=== PATIENT | male | born 1945 | race Two or more races ===

== ENCOUNTER 2016-12-21 05:45 | Inpatient (IN) | payer MEDICAID, MEDICARE ==
[2016-12-21] VITALS (23 sets, daily range): BP systolic 90–140; BP diastolic 56–74
[~2016-12-21] VITALS: Ht 167.6 cm; Wt 71.2 kg
[2016-12-21] MEDS ORDERED: IV NS 0.9% 1,000 ML ONE ×3 (06:14→08:48)
[2016-12-21] MEDS ORDERED: MORPHINE SULFATE INJ 4 MG/ML DISP.SYRIN ONE ×2 (06:14→06:43)
[2016-12-21] MEDS ORDERED: ONDANSETRON HCL/PF 4 MG/2 ML VIAL ONE (06:14)
[2016-12-21] MEDS ORDERED: IV SET PRIMARY 1 EA INFUS.SET MC ONE (06:14)
[2016-12-21] MEDS ORDERED: ONDANSETRON HCL/PF 4 MG/2 ML VIAL IVP ONE (06:30)
[2016-12-21] MEDS ORDERED: IV NS 0.9% 1,000 ML BAG IV ONE ×3 (06:30→09:00)
[2016-12-21] MEDS ORDERED: MORPHINE SULFATE INJ 2 MG/ML DISP.SYRIN IV ONE ×2 (06:30→07:00)
[2016-12-21 06:41] LABS: DIFF TOTAL % 100 %; HEMATOCRIT 53 % (39-51); HEMOGLOBIN 17.4 g/dL (13.5-17.5); LYMPHOCYTES # (AUTO) 1.4 /CMM (0.8-4.8); MEAN CORPUSCULAR HEMOGLOBIN 28 PG (26.0-33.0); MEAN CORPUSCULAR HGB CONC 33 g/dl (31.0-36.0); MEAN CORPUSCULAR VOLUME 85 fL (80-96); MONOCYTES # (AUTO) 0.6 /CMM (0.1-1.30); MONOCYTES % (AUTO) 3.1 % (2.0-12.0); NEUTROPHILS # (AUTO) 17.5 /CMM (1.8-8.9); NEUTROPHILS % (AUTO) 89.9 % (43.0-81.0); PLATELET COUNT (AUTO) 259 /CMM (150-450); RED BLOOD CELL COUNT(AUTO) 6.21 MIL/uL (4.5-6.0); WHITE BLOOD COUNT (AUTO) 19.4 K/uL (4.3-11.0)
[2016-12-21] MEDS ORDERED: MORPHINE SULFATE INJ 2 MG/ML DISP.SYRIN ONE (06:43)
[2016-12-21 06:51] LABS: ANION GAP 18 (5-14); CALCIUM, SERUM 10.1 mg/dL (8.5-10.1); CARBON DIOXIDE 26 mmol/L (21-32); CHLORIDE 99 mmol/L (98-107); CREATININE 1.4 mg/dL (0.6-1.3); GLUCOSE 196 mg/dL (74-106); POTASSIUM 4.1 mmol/L (3.5-5.1); SODIUM SERUM 139 mmol/L (136-145); UREA NITROGEN, BLOOD 29 mg/dL (7-18)
[2016-12-21 06:53] LABS: INR 0.96 (0.87-1.13); PROTHROMBIN TIME 10.4 SECS (9.5-12.7)
[2016-12-21 06:58] LABS: ALANINE AMINOTRANSFERASE 21 U/L (12-78); ALBUMIN 4.6 g/dL (3.4-5.0); ASPARTATE AMINOTRANSFERASE 22 U/L (15-37); BILIRUBIN,DIRECT 0.1 mg/dL (0.0-0.2); BILIRUBIN,TOTAL 0.5 mg/dL (0.2-1.0); INDIRECT BILIRUBIN 0.4 mg/dL (0.0-1.1); TOTAL PROTEIN, SERUM 9.3 g/dL (6.4-8.2); TROPONIN I 0.018 ng/mL (0.00-0.056)
[2016-12-21 07:09] LABS: KETONES,URINE TRACE (NEGATIVE); LEUKOCYTE ESTERASE ,URINE NEGATIVE (NEGATIVE); PH,URINE 5.5 (5.0-8.0)
[2016-12-21 07:11] LABS: ADD UA MICROSCOPIC YES
[2016-12-21 07:12] LABS: ADD URINE CULTURE NO; MUCUS,URINE Few /LPF (None Seen); WBC,URINE 0-2 /HPF (0-3)
[2016-12-21 07:23] LABS: LACTIC ACID 3.9 mmol/L (0.4-2.0)
[2016-12-21 07:33] LABS: *LACTIC ACID REFLEX FLAG YES
[2016-12-21] MEDS ORDERED: IV SET PRIMARY PUMP SET 1 EA INFUS.SET MC ONE (08:00)
[2016-12-21] MEDS ORDERED: VANCOMYCIN 1 GM in IV D5W 250 ML IV ONE (08:00)
[2016-12-21] MEDS ORDERED: LIDOCAINE VISCOUS 2% UD 15 ML UDC MM ONE (08:00)
[2016-12-21] MEDS ORDERED: PIPERACILLIN /TAZOBACTAM 3.375 G in IV D5W 50 ML IV ONE (08:00)
[2016-12-21] MEDS ORDERED: METO25TA6 PO (08:04)
[2016-12-21] MEDS ORDERED: VALS1TAB50 PO (08:04)
[2016-12-21] MEDS ORDERED: ASPI-991 PO (08:04)
[2016-12-21] MEDS ORDERED: ROSU20TA PO (08:04)
[2016-12-21] MEDS ORDERED: FERR-58 PO (08:04)
[2016-12-21] MEDS ORDERED: PROP50TA3 PO (08:04)
[2016-12-21] MEDS ORDERED: SUCCINYLCHOLINE CHLORIDE 20 MG/ML VIAL ONE (09:09)
[2016-12-21] MEDS ORDERED: ROCURONIUM BROMIDE 50 MG/5 ML ONE (09:09)
[2016-12-21] MEDS ORDERED: FENTANYL PF 100MCG/2ML AMPUL ONE (09:10)
[2016-12-21] MEDS ORDERED: BLOOD IV SET 1 EA INFUS.SET MC ONE (09:34)
[2016-12-21] MEDS ORDERED: SEVOFLURANE 250 ML BOTTLE IH ONE (09:47)
[2016-12-21] MEDS ORDERED: BUPIVACAINE 0.5 % PF 150 MG/30 ML VIAL ONE (09:47)
[2016-12-21] MEDS ORDERED: BACITRACIN 50000 UNITS/VIAL ONE (10:01)
[2016-12-21] MEDS ORDERED: HYDROMORPHONE INJ 2 MG/ML DISP.SYRIN ONE (11:27)
[2016-12-21] MEDS ORDERED: HYDROCODONE/APAP 5/325MG 1 EACH TABLET PO PRN (13:00)
[2016-12-21] MEDS ORDERED: MAG HYDROX/AL HYDROX/SIMETH 30 ML UDC PO PRN (13:00)
[2016-12-21] MEDS ORDERED: MAGNESIUM HYDROXIDE 30 ML UDC PO PRN (13:00)
[2016-12-21] MEDS ORDERED: ZOLPIDEM TARTRATE 5 MG TABLET PO PRN (13:00)
[2016-12-21] MEDS ORDERED: Z GUARD REMEDY 2 OZ OINT TP PRN (13:00)
[2016-12-21] MEDS ORDERED: ONDANSETRON HCL/PF 4 MG/2 ML VIAL IVP PRN ×2 (13:00)
[2016-12-21] MEDS ORDERED: ACETAMINOPHEN 325 MG TABLET PO PRN (13:00)
[2016-12-21] MEDS: PROPYLTHIOURACIL 50 MG TABLET PO SCH ×2 (13:00→16:16)
[2016-12-21] MEDS: IV LR 1000 ML 1,000 ML IV PRN ×2 (13:20→21:26)
[2016-12-21] MEDS: HYDROMORPHONE 1 MG/1 ML DISP.SYRIN IV PRN ×2 (15:33→19:31)
[2016-12-21] MEDS: METOPROLOL TARTRATE 25 MG TABLET PO SCH (16:15)
[2016-12-21] MEDS: ATORVASTATIN 40 MG TABLET PO SCH (21:00)
[2016-12-21] MEDS ORDERED: Medication Not On Formulary EA (Rosuvastatin Calcium (Crestor) 20 MG) PO SCH (22:00)
[2016-12-22] VITALS (11 sets, daily range): BP systolic 120–154; BP diastolic 65–81
[2016-12-22] MEDS: HYDROMORPHONE 1 MG/1 ML DISP.SYRIN IV PRN ×4 (02:40→16:48)
[2016-12-22 05:11] LABS: BASOPHILS % (AUTO) 0.1 % (0.0-2.0); DIFF TOTAL % 100 %; EOSINOPHILS % (AUTO) 0.4 % (0.0-6.0); HEMATOCRIT 39 % (39-51); HEMOGLOBIN 13.2 g/dL (13.5-17.5); LYMPHOCYTES # (AUTO) 1.5 /CMM (0.8-4.8); LYMPHOCYTES % (AUTO) 14.7 % (20.0-44.0); MEAN CORPUSCULAR HEMOGLOBIN 29 PG (26.0-33.0); MEAN CORPUSCULAR HGB CONC 34 g/dl (31.0-36.0); MEAN CORPUSCULAR VOLUME 85 fL (80-96); MONOCYTES # (AUTO) 0.9 /CMM (0.1-1.30); NEUTROPHILS # (AUTO) 7.5 /CMM (1.8-8.9); NEUTROPHILS % (AUTO) 75.8 % (43.0-81.0); PLATELET COUNT (AUTO) 198 /CMM (150-450); RED BLOOD CELL COUNT(AUTO) 4.59 MIL/uL (4.5-6.0); WHITE BLOOD COUNT (AUTO) 9.9 K/uL (4.3-11.0)
[2016-12-22] MEDS: IV LR 1000 ML 1,000 ML IV PRN ×2 (05:12→18:10)
[2016-12-22 05:24] LABS: ALBUMIN 2.8 g/dL (3.4-5.0); BILIRUBIN,TOTAL 0.8 mg/dL (0.2-1.0); CALCIUM, SERUM 7.9 mg/dL (8.5-10.1); CREATININE 1.3 mg/dL (0.6-1.3); PHOSPHORUS 2.8 mg/dL (2.5-4.9); POTASSIUM 3.9 mmol/L (3.5-5.1); TOTAL PROTEIN, SERUM 6.3 g/dL (6.4-8.2)
[2016-12-22 05:29] LABS: TROPONIN I 0.033 ng/mL (0.00-0.056)
[2016-12-22] MEDS ORDERED: PANTOPRAZOLE 40 MG TABLET.DR PO SCH (07:30)
[2016-12-22] MEDS: VALSARTAN 80 MG TABLET PO SCH (08:29)
[2016-12-22] MEDS: METOPROLOL TARTRATE 25 MG TABLET PO SCH ×3 (08:30→17:00)
[2016-12-22] MEDS: PANTOPRAZOLE 40 MG VIAL IV SCH ×2 (08:30→09:33)
[2016-12-22] MEDS: FERROUS SULFATE (325 MG) 325 MG/TAB TABLET PO SCH (08:30)
[2016-12-22] MEDS: ASPIRIN EC 81 MG TABLET.DR PO SCH (08:30)
[2016-12-22] MEDS: PROPYLTHIOURACIL 50 MG TABLET PO SCH ×4 (08:31→17:00)
[2016-12-22] MEDS ORDERED: SECONDARY IV SET 1 EA INFUS.SET MC ONE (08:37)
[2016-12-22] MEDS ORDERED: HYDROCHLOROTHIAZIDE 25 MG TABLET PO SCH (09:00)
[2016-12-22] MEDS: Magnesium 1GM/D5W 100ML PREMIX 100 ML IV SCH ×2 (09:31→10:30)
[2016-12-22] MEDS: ATORVASTATIN 40 MG TABLET PO SCH (21:24)
[2016-12-23] VITALS (9 sets, daily range): BP systolic 125–160; BP diastolic 57–91
[2016-12-23] MEDS: IV LR 1000 ML 1,000 ML IV PRN ×2 (03:12→11:46)
[2016-12-23 07:36] LABS: BASOPHILS % (AUTO) 0.2 % (0.0-2.0); DIFF TOTAL % 100 %; EOSINOPHILS # (AUTO) 0.1 /CMM (0.0-0.7); EOSINOPHILS % (AUTO) 0.8 % (0.0-6.0); HEMATOCRIT 38 % (39-51); HEMOGLOBIN 12.6 g/dL (13.5-17.5); LYMPHOCYTES # (AUTO) 1.2 /CMM (0.8-4.8); LYMPHOCYTES % (AUTO) 14.9 % (20.0-44.0); MEAN CORPUSCULAR HEMOGLOBIN 29 PG (26.0-33.0); MEAN CORPUSCULAR HGB CONC 34 g/dl (31.0-36.0); MEAN CORPUSCULAR VOLUME 85 fL (80-96); MONOCYTES # (AUTO) 0.6 /CMM (0.1-1.30); MONOCYTES % (AUTO) 8.2 % (2.0-12.0); NEUTROPHILS # (AUTO) 5.9 /CMM (1.8-8.9); NEUTROPHILS % (AUTO) 75.9 % (43.0-81.0); PLATELET COUNT (AUTO) 171 /CMM (150-450); WHITE BLOOD COUNT (AUTO) 7.8 K/uL (4.3-11.0)
[2016-12-23 08:17] LABS: ALBUMIN 2.5 g/dL (3.4-5.0); BILIRUBIN,TOTAL 0.8 mg/dL (0.2-1.0); CALCIUM, SERUM 8.2 mg/dL (8.5-10.1); PHOSPHORUS 1.5 mg/dL (2.5-4.9); POTASSIUM 3.8 mmol/L (3.5-5.1); TOTAL PROTEIN, SERUM 6.5 g/dL (6.4-8.2)
[2016-12-23] MEDS: PANTOPRAZOLE 40 MG VIAL IV SCH (08:41)
[2016-12-23] MEDS: FERROUS SULFATE (325 MG) 325 MG/TAB TABLET PO SCH (09:00)
[2016-12-23] MEDS: VALSARTAN 80 MG TABLET PO SCH (09:00)
[2016-12-23] MEDS: ASPIRIN EC 81 MG TABLET.DR PO SCH (09:00)
[2016-12-23] MEDS: METOPROLOL TARTRATE 25 MG TABLET PO SCH ×2 (09:00→17:00)
[2016-12-23] MEDS: PROPYLTHIOURACIL 50 MG TABLET PO SCH ×3 (09:00→17:00)
[2016-12-23] MEDS ORDERED: POTASSIUM PHOSPHATE MM 15 MMOL in IV D5W 250 ML IV SCH (11:30)
[2016-12-23] MEDS ORDERED: SECONDARY IV SET 1 EA INFUS.SET MC ONE (13:47)
[2016-12-23] MEDS: POTASSIUM PHOSPHATE MM 7.5 MMOL in IV D5W 100 ML IV SCH ×2 (13:55→17:27)
[2016-12-23] MEDS ORDERED: hydrALAZINE HCL IV 20 MG VIAL IV PRN ×2 (14:00→14:30)
[2016-12-23] MEDS: ATORVASTATIN 40 MG TABLET PO SCH (21:04)
[2016-12-24] VITALS: BP 136/70
[2016-12-24] MEDS: IV LR 1000 ML 1,000 ML IV PRN ×3 (02:23→20:19)
[2016-12-24 04:00] VITALS: BP 148/68
[2016-12-24 06:12] LABS: BASOPHILS % (AUTO) 0.1 % (0.0-2.0); DIFF TOTAL % 100 %; EOSINOPHILS # (AUTO) 0.1 /CMM (0.0-0.7); EOSINOPHILS % (AUTO) 2.1 % (0.0-6.0); HEMATOCRIT 35 % (39-51); HEMOGLOBIN 11.6 g/dL (13.5-17.5); LYMPHOCYTES # (AUTO) 1.3 /CMM (0.8-4.8); LYMPHOCYTES % (AUTO) 18.6 % (20.0-44.0); MEAN CORPUSCULAR HEMOGLOBIN 29 PG (26.0-33.0); MEAN CORPUSCULAR HGB CONC 34 g/dl (31.0-36.0); MEAN CORPUSCULAR VOLUME 85 fL (80-96); MONOCYTES # (AUTO) 0.6 /CMM (0.1-1.30); MONOCYTES % (AUTO) 8.4 % (2.0-12.0); NEUTROPHILS # (AUTO) 4.8 /CMM (1.8-8.9); NEUTROPHILS % (AUTO) 70.8 % (43.0-81.0); PLATELET COUNT (AUTO) 189 /CMM (150-450); RED BLOOD CELL COUNT(AUTO) 4.05 MIL/uL (4.5-6.0); WHITE BLOOD COUNT (AUTO) 6.8 K/uL (4.3-11.0)
[2016-12-24 06:58] LABS: CALCIUM, SERUM 8.6 mg/dL (8.5-10.1); POTASSIUM 3.6 mmol/L (3.5-5.1)
[2016-12-24 08:00] VITALS: BP_SYST 134; BP_SYST 145; BP_DIAS 74; BP_DIAS 76
[2016-12-24] MEDS: ASPIRIN EC 81 MG TABLET.DR PO SCH (09:00)
[2016-12-24] MEDS: METOPROLOL TARTRATE 25 MG TABLET PO SCH ×2 (09:00→16:01)
[2016-12-24] MEDS: FERROUS SULFATE (325 MG) 325 MG/TAB TABLET PO SCH (09:00)
[2016-12-24] MEDS: PANTOPRAZOLE 40 MG VIAL IV SCH (09:00)
[2016-12-24] MEDS: PROPYLTHIOURACIL 50 MG TABLET PO SCH ×3 (09:00→16:02)
[2016-12-24] MEDS: VALSARTAN 80 MG TABLET PO SCH (09:00)
[2016-12-24] MEDS: METOCLOPRAMIDE HCL 10 MG/2 ML VIAL IV SCH ×2 (12:11→20:09)
[2016-12-24 16:00] VITALS: BP_SYST 129; BP_SYST 133; BP_DIAS 68; BP_DIAS 72
[2016-12-24 20:00] VITALS: BP 132/77
[2016-12-24] MEDS: ATORVASTATIN 40 MG TABLET PO SCH (21:12)
[2016-12-25 04:00] VITALS: BP 147/72
[2016-12-25] MEDS: METOCLOPRAMIDE HCL 10 MG/2 ML VIAL IV SCH ×3 (04:27→21:06)
[2016-12-25] MEDS: IV LR 1000 ML 1,000 ML IV PRN ×2 (04:36→17:39)
[2016-12-25 06:47] LABS: BASOPHILS % (AUTO) 0.4 % (0.0-2.0); DIFF TOTAL % 100 %; EOSINOPHILS # (AUTO) 0.2 /CMM (0.0-0.7); EOSINOPHILS % (AUTO) 2.8 % (0.0-6.0); HEMATOCRIT 34 % (39-51); HEMOGLOBIN 11.4 g/dL (13.5-17.5); LYMPHOCYTES # (AUTO) 1.2 /CMM (0.8-4.8); LYMPHOCYTES % (AUTO) 19.6 % (20.0-44.0); MEAN CORPUSCULAR HEMOGLOBIN 29 PG (26.0-33.0); MEAN CORPUSCULAR HGB CONC 34 g/dl (31.0-36.0); MEAN CORPUSCULAR VOLUME 85 fL (80-96); MONOCYTES # (AUTO) 0.5 /CMM (0.1-1.30); MONOCYTES % (AUTO) 8.3 % (2.0-12.0); NEUTROPHILS # (AUTO) 4.1 /CMM (1.8-8.9); NEUTROPHILS % (AUTO) 68.9 % (43.0-81.0); PLATELET COUNT (AUTO) 203 /CMM (150-450); RED BLOOD CELL COUNT(AUTO) 3.97 MIL/uL (4.5-6.0); WHITE BLOOD COUNT (AUTO) 5.9 K/uL (4.3-11.0)
[2016-12-25 07:21] LABS: CALCIUM, SERUM 8.5 mg/dL (8.5-10.1); CREATININE 0.9 mg/dL (0.6-1.3); PHOSPHORUS 2.6 mg/dL (2.5-4.9); POTASSIUM 3.5 mmol/L (3.5-5.1)
[2016-12-25 08:00] VITALS: BP 148/78
[2016-12-25] MEDS: FERROUS SULFATE (325 MG) 325 MG/TAB TABLET PO SCH (08:25)
[2016-12-25] MEDS: VALSARTAN 80 MG TABLET PO SCH (08:25)
[2016-12-25] MEDS: METOPROLOL TARTRATE 25 MG TABLET PO SCH ×2 (08:25→16:15)
[2016-12-25] MEDS: ASPIRIN EC 81 MG TABLET.DR PO SCH (08:25)
[2016-12-25] MEDS: PROPYLTHIOURACIL 50 MG TABLET PO SCH ×3 (08:25→16:16)
[2016-12-25] MEDS: PANTOPRAZOLE 40 MG VIAL IV SCH (08:26)
[2016-12-25 16:00] VITALS: BP 166/82
[2016-12-25 20:00] VITALS: BP 166/76
[2016-12-25] MEDS: ATORVASTATIN 40 MG TABLET PO SCH (21:06)
[2016-12-26 04:00] VITALS: BP 114/80
[2016-12-26] MEDS: IV LR 1000 ML 1,000 ML IV PRN (05:16)
[2016-12-26] MEDS: METOCLOPRAMIDE HCL 10 MG/2 ML VIAL IV SCH ×3 (05:16→22:13)
[2016-12-26 08:00] VITALS: BP 166/81
[2016-12-26] MEDS: FERROUS SULFATE (325 MG) 325 MG/TAB TABLET PO SCH (08:55)
[2016-12-26] MEDS: PANTOPRAZOLE 40 MG VIAL IV SCH (08:55)
[2016-12-26] MEDS: PROPYLTHIOURACIL 50 MG TABLET PO SCH ×3 (08:55→16:40)
[2016-12-26] MEDS: ASPIRIN EC 81 MG TABLET.DR PO SCH (08:55)
[2016-12-26] MEDS: METOPROLOL TARTRATE 25 MG TABLET PO SCH ×2 (08:56→16:41)
[2016-12-26] MEDS: VALSARTAN 80 MG TABLET PO SCH (08:57)
[2016-12-26 12:00] VITALS: BP_SYST 133; BP_DIAS 72; BP_DIAS 77
[2016-12-26 16:00] VITALS: BP 168/87
[2016-12-26 20:00] VITALS: BP 146/79
[2016-12-26] MEDS ORDERED: LEVO500T90 PO ×2 (20:28→20:30)
[2016-12-26] MEDS ORDERED: LEVO500T15 PO (20:29)
[2016-12-26] MEDS ORDERED: CLIN30GE2 TP (20:33)
[2016-12-26] MEDS ORDERED: LEVOFLOXACIN 750 MG /D5W 150ML 750 MG in PREMIX 1 EA IV SCH (21:00)
[2016-12-26] MEDS ORDERED: IV SET PRIMARY PUMP SET 1 EA INFUS.SET MC ONE (21:56)
[2016-12-26] MEDS: ATORVASTATIN 40 MG TABLET PO SCH (22:13)
[2016-12-27 04:00] VITALS: BP 130/84
[2016-12-27] MEDS: METOCLOPRAMIDE HCL 10 MG/2 ML VIAL IV SCH ×2 (05:04→12:49)
[2016-12-27 08:00] VITALS: BP 145/84
[2016-12-27] MEDS ORDERED: CLINDAMYCIN PHOSPHATE-T 60 ML BOTTLE TP SCH (09:00)
[2016-12-27] MEDS: PROPYLTHIOURACIL 50 MG TABLET PO SCH ×3 (09:59→15:58)
[2016-12-27] MEDS: PANTOPRAZOLE 40 MG VIAL IV SCH (09:59)
[2016-12-27] MEDS: FERROUS SULFATE (325 MG) 325 MG/TAB TABLET PO SCH (10:00)
[2016-12-27] MEDS: VALSARTAN 80 MG TABLET PO SCH (10:00)
[2016-12-27] MEDS: METOPROLOL TARTRATE 25 MG TABLET PO SCH ×2 (10:00→15:58)
[2016-12-27] MEDS: ASPIRIN EC 81 MG TABLET.DR PO SCH (10:00)
[2016-12-27 15:58] VITALS: BP 162/92
[2016-12-27] MEDS ORDERED: LEVOFLOXACIN (500MG) 500 MG TABLET PO SCH (20:00)
== END 2016-12-27 16:00 | disposition home or self-care (01) | DRG 221 ==
LOC: ER 05:47 → TELE 08:31 → ICU 12:06 → TELE-TD 12-22 05:55 → TELE1 12-22 12:35 → MEDSG1 12-23 12:13 → TELE-TD 12-23 15:37 → MEDSG1 12-24 08:58
PROVIDERS: ADMIT Family Medicine; ATTEND Family Medicine
PROC: 0DB80ZZ Excision of Small Intestine, Open Approach (ICD-10-PCS; principal; 2016-12-21 08:00)
DX: K55.9 Vascular disorder of intestine, unspecified (principal); N17.0 Acute kidney failure with tubular necrosis; R18.8 Other ascites; E88.09 Other disorders of plasma-protein metabolism, not elsewhere classified; E44.1 Mild protein-calorie malnutrition; E83.42 Hypomagnesemia; E83.39 Other disorders of phosphorus metabolism; N28.1 Cyst of kidney, acquired; E05.90 Thyrotoxicosis, unspecified without thyrotoxic crisis or storm; I25.10 Atherosclerotic heart disease of native coronary artery without angina pectoris; I71.4 Abdominal aortic aneurysm, without rupture; D63.8 Anemia in other chronic diseases classified elsewhere; Z95.1 Presence of aortocoronary bypass graft; N40.0 Benign prostatic hyperplasia without lower urinary tract symptoms; D72.829 Elevated white blood cell count, unspecified; I10 Essential (primary) hypertension
CPT/HCPCS: 36415; 71010-TC; 80048-TC; 80053-TC; 80061-TC; 80076-TC; 81000-TC; 83605-TC; 83690-TC; 83735-TC; 84100-TC; 84484-TC; 85025-TC; 85730-TC; 86850-TC; 86921-TC; 87040-TC; 87081-TC; 88305-TC; 88307-TC; 93307-TC; 94799-TC; 97001-TC; 97116-TC; 97530-TC; A4216; A4606; A6209; A6253; A6402; C9113; J0330; J0360; J1170; J1956; J2270; J2405; J2543; J2765; J3010; J3370; J3475; J3490; J7030; J7060; J7120; Z7610

== ENCOUNTER 2023-02-14 09:49 | Outpatient (CLI) | payer MEDICARE, OTHER ==
[~2023-02-14 09:49] MED LIST: ASPI-1420 PO; CLIN30GE2 TP; FERR325T23 PO; METO25TA6 PO; PROP50TA3 PO; ROSU20TA2 PO; VALS1TAB6 PO
== END 2023-02-14 23:59 | disposition home or self-care (01) ==
LOC: RAD 09:49
PROVIDERS: ATTEND Surgery
DX: R06.00 Dyspnea, unspecified (principal); R60.9 Edema, unspecified; I70.0 Atherosclerosis of aorta
CPT/HCPCS: 71046

== ENCOUNTER 2023-06-09 22:52 | Inpatient (IN) | payer MEDICARE, OTHER ==
[~2023-06-09] VITALS: Ht 175.3 cm; Wt 79.4 kg
[2023-06-09] MEDS ORDERED: ONDANSETRON HCL/PF 4 MG/2 ML VIAL IVP ONE (23:00)
[2023-06-09] MEDS ORDERED: FAMOTIDINE/PF INJ 20 MG/2 ML VIAL IV ONE ×2 (23:00→23:05)
[2023-06-09] MEDS ORDERED: IV NS 0.9% 1,000 ML BAG IV ONE (23:00)
[2023-06-09] MEDS ORDERED: ONDANSETRON HCL/PF 4 MG/2 ML VIAL ONE (23:05)
--- NOTE | 2023-06-09 23:05 | NUR ---
[id number] FROM HOME FOR GENERALIZED ABD PAIN AND NAUSEA. PATIENT IS AOX4, ABLE TO MAKE NEEDS KNOWN. NOT IN CP DISTRESS. PLACED COMFORTABLY IN BED. VITALS CHECKED.
--- NOTE | 2023-06-09 23:07 | NUR ---
SEEN BY DR GRAVES AT BEDSIDE
[2023-06-09] MEDS ORDERED: IV NS 0.9% 250 ML IV ONE ×2 (23:13→23:28)
[2023-06-09] MEDS ORDERED: CT SWABBABLE VALVE TRANS SET 1 EA INFUS.SET MC ONE ×2 (23:13→23:28)
[2023-06-09] MEDS ORDERED: IOHEXOL-300 100 ML VIAL IV ONE ×2 (23:13→23:28)
--- NOTE | 2023-06-09 23:15 | NUR ---
BLOOD DRAWN AND SENT TO LAB
[2023-06-09 23:28] LABS: BASOPHILS % (AUTO) 0.1 % (0.0-2.0); HEMATOCRIT 50 % (39-51); HEMOGLOBIN 16.8 g/dL (13.5-17.5); LYMPHOCYTES # (AUTO) 1.3 K/uL (0.8-4.8); LYMPHOCYTES % (AUTO) 7.6 % (20.0-44.0); MEAN CORPUSCULAR HGB CONC 33 g/dl (31.0-36.0); MEAN CORPUSCULAR VOLUME 85 fL (80-96); MONOCYTES # (AUTO) 0.7 K/uL (0.1-1.30); NEUTROPHILS # (AUTO) 15.2 K/uL (1.8-8.9); NEUTROPHILS % (AUTO) 88.3 % (43.0-81.0); PLATELET COUNT (AUTO) 270 K/uL (150-450); WHITE BLOOD COUNT (AUTO) 17.2 K/uL (4.3-11.0)
[2023-06-09 23:47] LABS: CALCIUM, SERUM 10.4 mg/dL (8.5-10.1); CARBON DIOXIDE 30 mmol/L (21-32); CHLORIDE 100 mmol/L (98-107); CREATININE 1.3 mg/dL (0.6-1.3); GLUCOSE 158 mg/dL (74-106); POTASSIUM 3.7 mmol/L (3.5-5.1); SODIUM SERUM 143 mmol/L (136-145); UREA NITROGEN, BLOOD 19 mg/dL (7-18)
[2023-06-10 00:02] LABS: ALANINE AMINOTRANSFERASE 36 U/L (12-78); ALBUMIN 4.4 g/dL (3.4-5.0); ALKALINE PHOSPHATASE 57 U/L (46-116); ASPARTATE AMINOTRANSFERASE 37 U/L (15-37); BILIRUBIN,DIRECT 0.3 mg/dL (0.0-0.2); LIPASE 47 U/L (73-393); TOTAL PROTEIN, SERUM 9.3 g/dL (6.4-8.2)
[2023-06-10] MEDS ORDERED: CEFEPIME 1 GM VIAL ONE (00:16)
[2023-06-10] MEDS ORDERED: VANCOMYCIN 1 GM /D5W 250 ML PB IV ONE (00:23)
[2023-06-10] MEDS ORDERED: CEFEPIME 1 GM in IV D5W 50 ML IV ONE (00:30)
[2023-06-10] MEDS ORDERED: VANCOMYCIN 1 GM in IV D5W 250 ML IV ONE (00:30)
--- NOTE | 2023-06-10 00:30 | NUR ---
RM [id number]
--- NOTE | 2023-06-10 01:00 | NUR ---
Urine collected, sent to lab
--- NOTE | 2023-06-10 01:07 | NUR ---
REPORT GIVEN TO JACKIE CONN
[2023-06-10 01:29] LABS: BILIRUBIN,URINE 1+ (NEGATIVE); COLOR,URINE DARK YELLOW (YELLOW); LEUKOCYTE ESTERASE ,URINE NEGATIVE (NEGATIVE); NITRITE, URINE NEGATIVE (NEGATIVE); PH,URINE 6.5 (5.0-8.0); PROTEIN,URINE 3+ mg/dl (NEGATIVE); UGLUCOSE NEGATIVE (NEGATIVE)
--- NOTE | 2023-06-10 01:31 | NUR ---
DR SALOMON CONTACTED FOR SMALL BOWEL OBSTUCTION. PEER TO PEER DONE
[2023-06-10 01:41] LABS: RBC,URINE TOO NUMEROUS TO COUN /HPF (0-2)
[2023-06-10 01:42] LABS: BACTERIA,URINE Rare /HPF (None Seen)
[2023-06-10] MEDS ORDERED: ACETAMINOPHEN 325 MG TABLET PO PRN (02:30)
[2023-06-10] MEDS ORDERED: MORPHINE SULFATE INJ 2 MG/ML DISP.SYRIN IV PRN (02:30)
[2023-06-10 02:36] VITALS: BP 155/86; TEMP 98.4; O2SAT 96
--- NOTE | 2023-06-10 02:36 | NUR ---
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
[2023-06-10] MEDS: IV NS 0.9% 1,000 ML IV SCH ×2 (03:14→16:06)
[2023-06-10 04:00] VITALS: BP 180/80; TEMP 98.4; O2SAT 96
[2023-06-10] MEDS: hydrALAZINE HCL IV 20 MG VIAL IV PRN (04:27)
--- NOTE | 2023-06-10 05:27 | NUR ---
PROOF INSPECTOR NOTES BP SUBSIDED TO 164/89 NO DISTRESS NOTED AND NO VOMITING
[2023-06-10] MEDS: ONDANSETRON HCL/PF 4 MG/2 ML VIAL IVP PRN (06:10)
--- NOTE | 2023-06-10 06:11 | NUR ---
RN NOTES PATIENT VOMITING AT THIS 30ML GREENISH COLOR ZOFRAN 4MG IV PUSH GIVEN CONTINUE TO MONITOR
--- NOTE | 2023-06-10 06:42 | NUR ---
SUPERVISOR COOLER SERVICE CLOSING NOTES PATIENT IN BED , ALERT ORIENTED X4, PATIENT ON RA O2 SAT 91% AND APPLY 2L O2 VIA N/C, SATURATION WENT UP TO 96% NO DISTRESS OR DISCOMFORT AT THIS TIME AND DENIES PAIN, NGTUBE RIGHT NARES INTACT AND PATENT, PATIENT VOMITING 30ML GREENISH COLOR ZOFRAN 4MG IV PUSH GIVEN. SKIN INTACT, IV ACCESS LAC 20G INTACT AND PATENT RUNNING OF NS AT 75 CC/HR, KEEP AND DRY AND CLEAN ALL NEED ATTENDED SIDE TRAIL UP X2, BED ALARM ON, BED LOCKED IN LOW POSITION ,VSS , ALL MEDICATIONS GIVEN PATIENT REMAINED NPO DUE TO SMALL BOWEL PER ER, OBSTRUCTION, ON TELE SR HR 96, ENDORSE TO RN DAY SHIFT
--- NOTE | 2023-06-10 07:39 | NUR ---
THEATER PROJECTIONIST NOTE PATIENT IN BED , ALERT ORIENTED X4, PATIENT ON 2L O2 VIA N/C, NO SOB NOTED AT THIS TIME, NO , NGTUBE RIGHT NARES INTACT AND PATEN NO VOMITING NOTED AT THIS TIME, SKIN INTACT, IV ACCESS LAC 20G INTACT AND PATENT RUNNING OF NS AT 75 CC/HR, KEEP AND DRY AND CLEAN ALL NEED ATTENDED SIDE TRAIL UP X2, BED ALARM ON, BED LOCKED IN LOW POSITION ,WILL CONT TO MONITOR CLOSELY
[2023-06-10 08:00] VITALS: BP 169/100; TEMP 98.4; O2SAT 96
[2023-06-10] MEDS ORDERED: CEFEPIME 2 GM in IV D5W 100 ML IV SCH (08:00)
--- NOTE | 2023-06-10 11:30 | NUR ---
NUCLEAR OFFICER NOTE SEEN BY DR AIME KIRBY TO GIVE Tylenol FOR Headache BY MOUTH OK TO START LOW INTERMITTED SUCTIONING, X RAY SMall bowel through for tomorrow
[2023-06-10 12:00] VITALS: BP 157/67; TEMP 98.4; O2SAT 96
[2023-06-10] MEDS ORDERED: INSULIN REGULAR, HUMAN 100 UNIT/ML 3 ML VIAL SQ PRN (14:00)
[2023-06-10] MEDS ORDERED: DEXTROSE 50%-WATER 50 ML DISP.SYRIN IV PRN (14:00)
--- NOTE | 2023-06-10 14:04 | NUR ---
TLE RN NOTE LT HAND NEW HL INSERTED AND TYLENOL PO GIVEN ORDERED ,DAUGHTER AT BEDSIDE, JOSE RAFAEL RN APPLICATIONS PROCESSOR AT BEDSIDE AWARE BP 157/68 AND SAY WILL ORDER PAIN MEDICATION
[2023-06-10 16:00] VITALS: BP 150/78; TEMP 98.8; O2SAT 93
--- NOTE | 2023-06-10 16:12 | NUR ---
mental telepathist note 2d echo doing now ,cont on low intermitted suction
--- NOTE | 2023-06-10 16:57 | NUR ---
telegraph operator note per dr quispe order ok to d\c accu check and sliding scale , will f\u
[2023-06-10] MEDS ORDERED: BLOOD SUGAR DIAGNOSTIC 1 EACH STRIP IN SCH (18:00)
--- NOTE | 2023-06-10 18:49 | NUR ---
PSYCHOLOGY PROFESSOR NOTE RESTING COMFORTABLY ,ALL NEEDS ATTENDANT, RT NARE N G TUBE TO LOWER INTERMITTED SUCTION WITH THERESE COLOR DRAINAGE NOTED , ON IVF ORDERED BY LT HAND , FAMILY AT BEDSIDE , ALL NEEDS ATTENDED , NO SOB NOTED ON 2L NC , WILL CONT TO MONITOR CLOSELY
--- NOTE | 2023-06-10 19:40 | NUR ---
STATE ARCHIVIST OPENNING NOTE RECEIVED PATIENT IN BED , SLEEPING AND EASILY AROUSABLE. A/O X4, PATIENT ON 2L O2 VIA N/C, NO SOB NOTED AT THIS TIME. PT HAS NGTUBE RIGHT NARES INTACT AND PATEN NO VOMITING NOTED AT THIS TIME. SKIN INTACT, IV ACCESS LEFT HAND 24G INTACT AND PATENT RUNNING OF NS AT 75 CC/HR. FAMILY AT BEDSIDE. SIDE TRAIL UP X2, BED ALARM ON, BED LOCKED IN LOW POSITION ,WILL CONT TO MONITOR .
[2023-06-10 20:00] VITALS: BP 141/96; TEMP 98.4; O2SAT 94
--- NOTE | 2023-06-10 20:00 | NUR ---
RN NOTE PT REFUSED V/S.
[2023-06-11] VITALS: BP 153/90; TEMP 98.1; O2SAT 96
[2023-06-11] MEDS: ENOXAPARIN SODIUM 40 MG/0.4 ML DISP.SYRIN SQ SCH ×2 (03:08→22:00)
[2023-06-11 04:00] VITALS: BP 153/77; TEMP 98.7; O2SAT 90
[2023-06-11] MEDS: IV NS 0.9% 1,000 ML IV SCH (05:45)
--- NOTE | 2023-06-11 07:10 | NUR ---
ASSISTANT TECHNICIAN OPENNING NOTE RECEIVED PATIENT IN BED , SLEEPING AND EASILY AROUSABLE. A/O X4, PATIENT ON 2L O2 VIA N/C, NO SOB NOTED AT THIS TIME. PT HAS NGTUBE RIGHT NARES INTACT AND PATEN NO VOMITING NOTED AT THIS TIME;CONNECTED TO THE INTERMITTENT LOW SUCTIONING , GREEN COLOR DRAINAGE NOTED IN THE DRAINAGE CONTAINER . SKIN INTACT, IV ACCESS LEFT HAND 24G INTACT AND PATENT RUNNING OF NS AT 75 CC/HR. FAMILY AT BEDSIDE. SIDE TRAIL UP X2, BED ALARM ON, BED LOCKED IN LOW POSITION ,WILL CONT TO MONITOR .
--- NOTE | 2023-06-11 07:19 | NUR ---
BLADDER BLOWER CLOSING NOTE PATIENT IN BED , SLEEPING AND EASILY AROUSABLE. A/O X4, PATIENT ON 2L O2 VIA N/C, NO SOB NOTED AT THIS TIME. PT HAS NGTUBE RIGHT NARES INTACT AND PATENT WITH LOW INTERMITTENT SUCTIONING. NO VOMITING NOTED AT THIS TIME. SKIN INTACT, IV ACCESS LEFT HAND 24G INTACT AND PATENT RUNNING OF NS AT 75 CC/HR. ALL DUE MEDS ARE GIVEN. ALL NEEDS ARE ATTENDED. KEPT PT CLEAN AND DRY. SIDE TRAIL UP X2, BED ALARM ON, BED LOCKED IN LOW POSITION ,WILL ENDORSE CARE TO AM SHIFT RN . Addendum: 06/11/23 at 0725 by TACOS CHUO RN PT HAS EXTERNAL TELE MONITOR. PT IS SIRUS RHYTHM 94.
[2023-06-11 07:50] LABS: ALBUMIN 3.2 g/dL (3.4-5.0); BILIRUBIN,TOTAL 1.1 mg/dL (0.2-1.0); CALCIUM, SERUM 8.6 mg/dL (8.5-10.1); CREATININE 0.9 mg/dL (0.6-1.3); MAGNESIUM 2.4 mg/dL (1.8-2.4); PHOSPHORUS 3.2 mg/dL (2.5-4.9); POTASSIUM 3.5 mmol/L (3.5-5.1)
[2023-06-11 08:00] VITALS: BP 141/66; TEMP 98.9; O2SAT 90
[2023-06-11 08:12] LABS: COMPLEMENT C3, SERUM 146 mg/dL (82-167); COMPLEMENT C4, SERUM 37 mg/dL (12-38)
[2023-06-11 08:43] LABS: BASOPHILS % (AUTO) 0.2 % (0.0-2.0); EOSINOPHILS % (AUTO) 0.2 % (0.0-6.0); HEMATOCRIT 42 % (39-51); LYMPHOCYTES # (AUTO) 1.1 K/uL (0.8-4.8); LYMPHOCYTES % (AUTO) 16.7 % (20.0-44.0); MEAN CORPUSCULAR HGB CONC 33 g/dl (31.0-36.0); MEAN CORPUSCULAR VOLUME 85 fL (80-96); MONOCYTES # (AUTO) 0.6 K/uL (0.1-1.30); MONOCYTES % (AUTO) 8.5 % (2.0-12.0); NEUTROPHILS # (AUTO) 4.8 K/uL (1.8-8.9); NEUTROPHILS % (AUTO) 74.4 % (43.0-81.0); PLATELET COUNT (AUTO) 198 K/uL (150-450); RED BLOOD CELL COUNT(AUTO) 4.98 MIL/uL (4.5-6.0); WHITE BLOOD COUNT (AUTO) 6.5 K/uL (4.3-11.0)
[2023-06-11] MEDS: NITROGLYCERIN 30 GM TUBE TP SCH ×3 (09:25→20:52)
[2023-06-11] MEDS: CEFEPIME 2 GM in IV D5W 100 ML IV SCH ×2 (09:29→20:39)
[2023-06-11 10:12] LABS: *ANA ANTI-CENTROMERE B AB <0.2 AI (0.0-0.9); *ANA ANTI-DNA(DS) AB, QN 1 IU/mL (0-9); *ANA ANTI-JO-1 <0.2 AI (0.0-0.9); *ANA ANTICHROMATIN ANTIBODY <0.2 AI (0.0-0.9); *ANA RNP ANTIBODIES <0.2 AI (0.0-0.9); *ANA SJOGREN'S ANTI-SS-A <0.2 AI (0.0-0.9); *ANA SJOGREN'S ANTI-SS-B <0.2 AI (0.0-0.9); *ANAANTI-SCLERODERMA-70 AB <0.2 AI (0.0-0.9); *ANASMITH AB <0.2 AI (0.0-0.9)
[2023-06-11 12:00] VITALS: BP 109/60; TEMP 98.5; O2SAT 90
[2023-06-11 16:00] VITALS: BP 112/62; TEMP 98.3; O2SAT 90
[2023-06-11] MEDS: IV NS 0.9% 1,000 ML IV PRN (16:50)
[2023-06-11] MEDS ORDERED: ESOM40CA PO (17:53)
--- NOTE | 2023-06-11 19:05 | NUR ---
SHOP REPAIRER OPENING NOTE RECEIVED PATIENT IN BED WITH FAMILY AT BEDSIDE, ASLEEP, BUT AROUSABLE. O2 VIA NC AT 2L, NO SOB/DISTRESS NOTED AT THIS TIME. ON RUBBER STAMP MAKER SHOWING SR, HR 86. PT HAS NGT ON HIS RIGHT NARE, INTACT AND PATENT ON LOW INTERMITTENT SUCTION. IV ACCESS ON LEFT HAND 24G, INFUSING NS AT 75 ML/HR. SAFETY MEASURES IN PLACE: BED LOCKED AND IN LOWEST POSITION, SIDE TRAIL UP X2, BED ALARM ON.
[2023-06-11 20:00] VITALS: BP 126/65; TEMP 97.9; O2SAT 95
--- NOTE | 2023-06-11 20:54 | NUR ---
RN NOTE PATIENT AND FAMILY REFUSED NITRO-BID TO BE ADMINISTERED AT THIS TIME DESPITE EXPLAINING MEDICATION RISKS AND BENEFITS. BP 126/65.
--- NOTE | 2023-06-11 22:03 | NUR ---
RN NOTE HELD LOVENOX FOR POSSIBLE EGD IN THE AM.
[2023-06-12] VITALS (8 sets, daily range): BP systolic 121–165; BP diastolic 58–93; TEMP 97.8–98.7; O2SAT 93–96
[2023-06-12] MEDS: IV NS 0.9% 1,000 ML IV PRN (06:32)
[2023-06-12 06:58] LABS: CALCIUM, SERUM 8.6 mg/dL (8.5-10.1); CREATININE 0.9 mg/dL (0.6-1.3); POTASSIUM 3.3 mmol/L (3.5-5.1)
--- NOTE | 2023-06-12 07:20 | NUR ---
JEWELRY ENGRAVER CLOSING NOTES PATIENT IN BED AWAKE, AAO X4, BULGARIAN SPEAKING. O2 VIA NC AT 2L, NO SOB/DISTRESS NOTED AT THIS TIME. ON BUMPER OPERATOR SHOWING SR. PT HAS NGT ON HIS RIGHT NARE, INTACT AND PATENT ON LOW INTERMITTENT SUCTION DRAINING BROWN FLUID. IV ACCESS ON LEFT HAND 24G, INFUSING NS AT 75 ML/HR. ALL DUE MEDS WERE GIVEN AND NEEDS ATTENDED. SAFETY MEASURES IN PLACE: BED LOCKED AND IN LOWEST POSITION, SIDE TRAIL UP X2, BED ALARM ON. ENDORSED TO MORNING NURSE FOR BHARTI
[2023-06-12] MEDS: POTASSIUM CL. PREMIX PERIPHER. 50 ML IV SCH ×5 (08:56→13:10)
[2023-06-12] MEDS: CEFEPIME 2 GM in IV D5W 100 ML IV SCH ×2 (09:14→21:28)
[2023-06-12] MEDS: NITROGLYCERIN 30 GM TUBE TP SCH ×2 (09:15→21:33)
[2023-06-12] MEDS ORDERED: IV 1/2NS 1000 ML 1,000 ML IV PRN (11:00)
[2023-06-12] MEDS ORDERED: POTASSIUM CL. PREMIX PERIPHER. 50 ML IV SCH (13:30)
--- NOTE | 2023-06-12 13:50 | NUR ---
followup the small bowel ff thru per xray they are waiting for staff ,will do it in the afternoon,dr. manrique made aware will continue to ff up.
--- NOTE | 2023-06-12 16:22 | NUR ---
ff up with radiology the small bowel ff thru test,still pending r/t staffing issue,nursing sup notified.
--- NOTE | 2023-06-12 16:23 | NUR ---
pt ng to [facility] WITH MINIMAL OUTPUT. daughter worried pt getting more bloated.wanted pt. transfeered to another hospital and second opinion from dr. franky childs.
--- NOTE | 2023-06-12 16:25 | NUR ---
family reassured ,recheched suction working,pt. denies n/v vss.
--- NOTE | 2023-06-12 16:26 | NUR ---
per dr. silver she notified dr. childs will see ptJhonny cheema.
--- NOTE | 2023-06-12 16:27 | NUR ---
DIMITRIOS HOFFMAN MADE AWARE.
[2023-06-12] MEDS ORDERED: DIATR MEGLU/DIATRIZOATE SODIUM 120 ML BOTTLE (GASTROGRAPHIN) ONE (16:29)
[2023-06-12 16:54] LABS: BILIRUBIN,URINE NEGATIVE (NEGATIVE); COLOR,URINE YELLOW (YELLOW); LEUKOCYTE ESTERASE ,URINE NEGATIVE (NEGATIVE); NITRITE, URINE NEGATIVE (NEGATIVE); PROTEIN,URINE 2+ mg/dl (NEGATIVE); UGLUCOSE NEGATIVE (NEGATIVE); UROBILINOGEN,URINE 0.2 EU/dL (0.2)
--- NOTE | 2023-06-12 17:00 | NUR ---
SMALL BOWEL THROUGH STARTED AT 1700, THE TECH SAID WILL TAKE UP TO 8 HRS
[2023-06-12 17:05] LABS: BACTERIA,URINE None seen /HPF (None Seen); MUCUS,URINE Moderate /LPF (None Seen); RBC,URINE TOO NUMEROUS TO COUN /HPF (0-2); SQUAMOUS EPITHELIAL CELL,UR None Seen /HPF (None Seen); WBC,URINE NONE SEEN /HPF (0-3)
[2023-06-12] MEDS: hydrALAZINE HCL IV 20 MG VIAL IV PRN (18:21)
--- NOTE | 2023-06-12 18:50 | NUR ---
FAMILY AND DAUGHTER AT BED SIDE. SMALL BOWEL THROUGH IS IN PROCESS ALVERTO 1 HOUR CONTRAST INJECTION THROUGH NG TUBE FOLLOW UP WITH XRAY. PATIENT BP WAS 172/95 AT 1730 10 MG OF IV HYDRALAZINE ADMINISTERED BP DECREASED TO 148/86
--- NOTE | 2023-06-12 19:30 | NUR ---
noc rn opening note received patient in bed, a/ox4. no s/s of apparent distress in 2lpm of o2 via nc. NG-tube in right nare in at 55cm, clamped and not connected to suction d/t small bowel follow through.patient reading st, c/o N/V at this time. 6 family members at bedside. patient has a left hand #24g IV access running 1/2 ns @75mls/hr. safety in place-- bed in lowest, locked position, side rails up X2. will continue with patient's plan of care.
[2023-06-12] MEDS: ONDANSETRON HCL/PF 4 MG/2 ML VIAL IVP PRN (19:42)
--- NOTE | 2023-06-12 19:42 | NUR ---
NOC RN NOTE- PRN ADMINISTRATION PATIENT C/O NAUSEA WITH VOMITING X1, GIVEN ZOFRAN 4MG ORDERED PRN. WILL RE-ASSESS.
--- NOTE | 2023-06-12 21:00 | NUR ---
gustavo rn note X-ray tech Cheng said they need to do 2 more X-rays as ordered by the [employer] edwar Anand. he said probably [id number] and at midnight. Addendum: 06/13/23 at 0551 by ELIZABETH BAE RN disregard, wrong time
--- NOTE | 2023-06-12 21:30 | NUR ---
noc rn note seafood technology specialist at bedside for the small bowel follow through. Per eliseo Anand, he will let me know if there's going to be another one or if its the last. will follow up
--- NOTE | 2023-06-12 21:45 | NUR ---
noc rn note X-ray tech Cheng called, said they need to do 2 more X-rays as ordered by the [employer] company per Cheng. he said probably 2230 AND another one at midnight and he will endorse to dixon already.
--- NOTE | 2023-06-12 22:37 | NUR ---
noc rn note X-ray tech at bed side for the small bowel follow through.
[2023-06-12] MEDS: ENOXAPARIN SODIUM 40 MG/0.4 ML DISP.SYRIN SQ SCH (22:42)
[2023-06-13] VITALS: BP 151/84; TEMP 97.7; O2SAT 95
--- NOTE | 2023-06-13 | NUR ---
noc rn note casting technician in the unit, reminded them of the bowel follow through for patient. per tech they'll back "like 1:30". will follow up
--- NOTE | 2023-06-13 02:50 | NUR ---
noc rn note BM X4 at this time now. will cont. to monitor.
--- NOTE | 2023-06-13 03:46 | NUR ---
noc rn note called Xray to follow up if they did the last small bowel follow through, per tech they will call me back they will text the doctor. awaiting.
[2023-06-13 04:00] VITALS: BP 144/68; TEMP 97.8; O2SAT 94
--- NOTE | 2023-06-13 05:13 | NUR ---
noc rn note called XRAY again to follow up, per tech and to quote "Okay let me see what's happening with that one" to call me back.
[2023-06-13 05:57] LABS: BASOPHILS % (AUTO) 0.1 % (0.0-2.0); EOSINOPHILS % (AUTO) 0.4 % (0.0-6.0); HEMATOCRIT 43 % (39-51); HEMOGLOBIN 14.4 g/dL (13.5-17.5); LYMPHOCYTES # (AUTO) 1.3 K/uL (0.8-4.8); LYMPHOCYTES % (AUTO) 16.7 % (20.0-44.0); MEAN CORPUSCULAR HGB CONC 33 g/dl (31.0-36.0); MEAN CORPUSCULAR VOLUME 86 fL (80-96); MONOCYTES # (AUTO) 0.6 K/uL (0.1-1.30); MONOCYTES % (AUTO) 8.2 % (2.0-12.0); NEUTROPHILS # (AUTO) 5.7 K/uL (1.8-8.9); NEUTROPHILS % (AUTO) 74.6 % (43.0-81.0); PLATELET COUNT (AUTO) 185 K/uL (150-450); RED BLOOD CELL COUNT(AUTO) 5.04 MIL/uL (4.5-6.0); WHITE BLOOD COUNT (AUTO) 7.7 K/uL (4.3-11.0)
--- NOTE | 2023-06-13 05:57 | NUR ---
noc rn note called Xray again to follow up per Xray personnel and to quote "Yea, we already called the radiology for that multiple times. they said they will get to it as soon as possible but right now they are very busy." verified with them and they said not to connect patient to suction just yet not until they are done. made Charge nurse Belgica aware. will cont. to follow up.
[2023-06-13 06:20] LABS: CALCIUM, SERUM 9.1 mg/dL (8.5-10.1); MAGNESIUM 2.7 mg/dL (1.8-2.4); PHOSPHORUS 2.6 mg/dL (2.5-4.9); POTASSIUM 3.5 mmol/L (3.5-5.1)
--- NOTE | 2023-06-13 06:58 | NUR ---
noc rn note Dr. Nascimento called, made him aware that the last bowel follow through have not been done hence I cannot connect patient to suction just yet. also made him aware that patient had passed BM X6 and that family members wanting to talk to him. made Doctor aware of the 5 second QRS widening on the tele monitor. no new orders from Doctor. will monitor patient.
--- NOTE | 2023-06-13 07:43 | NUR ---
noc rn closing note all needs attended. Report given to JACKIE Grissom for continuity of patient care.
[2023-06-13 08:00] VITALS: BP 172/94; TEMP 98.9; O2SAT 93
--- NOTE | 2023-06-13 08:10 | NUR ---
MOHEL CESAR OPENING NOTE (DAY SHIFT) RECEIVED PATIENT IN BED, ASLEEP, EASILY AROUSED, ALERT AND ORIENTED X 4, SPEAKING ONLY CITIZEN OF [place] ASLEEP, BUT O2 VIA NC AT 3 L, NO SOB/DISTRESS NOTED AT THIS TIME. ON TEACHERS ASSISTANT SHOWING SR, HR 90 BPM. PT HAS NGT ON HIS RIGHT NARE, INTACT AND PATENT AND CLAMPED, AWAITING FINAL SBFT TEST. IV ACCESS ON LEFT HAND 24G, INFUSING 1/2 NS AT 75 ML/HR. SAFETY MEASURES IN PLACE: BED LOCKED AND IN LOWEST POSITION, SIDE TRAIL UP X 2, BED ALARM ON. CALL DOLAN /LIGHT WITHIN EASY REACH OF PATIENT. WILL CONTINUE TO MONITOR AND CARE FOR PATIENT PER MD'S POC.
[2023-06-13] MEDS: CEFEPIME 2 GM in IV D5W 100 ML IV SCH ×2 (11:51→20:37)
[2023-06-13] MEDS: NITROGLYCERIN 30 GM TUBE TP SCH ×2 (11:52→20:38)
[2023-06-13 12:00] VITALS: BP 165/95; TEMP 97.7; O2SAT 94
[2023-06-13] MEDS: IV D5W 1,000 ML IV PRN (14:15)
[2023-06-13 16:00] VITALS: BP 147/70; TEMP 98.1; O2SAT 92
--- NOTE | 2023-06-13 19:00 | NUR ---
HIM CLERK CESRA CLOSING NOTE (DAY SHIFT) PATIENT IN BED, AWAKE, A/O X4, SURROUNDED BY MULTIPLE FAMILY MEMBERS. PATIENT ON 3 L O2 VIA N/C, NO SOB NOTED AT THIS TIME. PATIENT NO LONGER HAS NG-TUBE AND SBO SEEMS TO HAVE RESOLVED. STARTED ON CLEAR LIQUIDS DIET AND SEEMS TO BE TOLERATING WELL WITHOUT NAUSEA NOR VOMITING. SKIN INTACT, IV ACCESS LEFT HAND 24G INTACT AND PATENT INFUSINGING OF D5 W AT 75 CC/HR. ALL DUE MEDS WERE GIVEN. ALL NEEDS WERE ATTENDED. KEPT PT CLEAN AND DRY. SIDE TRAIL UP X 2, BED ALARM ON, BED LOCKED IN LOW POSITION , CALL DOLAN/LIGHT WITHIN EASY REACH OF PATIENT. WILL ENDORSE CARE TO NURSING PROGRAM MANAGER RN FOR BHARTI.
--- NOTE | 2023-06-13 19:15 | NUR ---
191 Dr. Nascimento at bedside and examined patient, family members at bedside, no orders given.
--- NOTE | 2023-06-13 19:50 | NUR ---
OPENING PANTRY GOODS WORKER NOTES RECEIVED PATIENT LYING ON BED, AWAKE, A/O X 4 WITH FAMILY MEMBERS AT BEDSIDE. PATIENT ON ROOM AIR WITH NO SOB, NO S/S OF DISTRESS AND DISCOMFORT NOTED AT THIS TIME. PATIENT HAS L HAND # 24 PIV INTACT AND PATENT WITH 1/2 NS @ 75 CC/HR RUNNING WELL. PATIENT ON TELE MONITOR READING SR 86 AT THIS TIME. SAFETY MEASURES IN PLACED, CALL LIGHT WITH IN REACH, PUT BED TO LOWEST POSITION AND LOCKED ON. ALL NEEDS ATTENDED AND WILL CONTINUE TO MONITOR. Addendum: 06/14/23 at 0203 by RONAN MARKS RN OPENING PANTRY GOODS WORKER NOTES RECEIVED PATIENT LYING ON BED, AWAKE, A/O X 4 WITH FAMILY MEMBERS AT BEDSIDE. PATIENT ON ROOM AIR WITH NO SOB, NO S/S OF DISTRESS AND DISCOMFORT NOTED AT THIS TIME. PATIENT HAS L HAND # 24 PIV INTACT AND PATENT WITHD5 W @ 75 CC/HR RUNNING WELL. PATIENT ON TELE MONITOR READING SR 86 AT THIS TIME. SAFETY MEASURES IN PLACED, CALL LIGHT WITH IN REACH, PUT BED TO LOWEST POSITION AND LOCKED ON. ALL NEEDS ATTENDED AND WILL CONTINUE TO MONITOR.
[2023-06-13 20:00] VITALS: BP 168/81; TEMP 98.1; O2SAT 95
[2023-06-13] MEDS ORDERED: MAG HYDROX/AL HYDROX/SIMETH 30 ML UDC PO PRN (21:00)
[2023-06-13] MEDS: ENOXAPARIN SODIUM 40 MG/0.4 ML DISP.SYRIN SQ SCH (21:06)
[2023-06-14] VITALS: BP 149/73; TEMP 98.9; O2SAT 97
[2023-06-14 04:00] VITALS: BP 137/76; TEMP 98.1; O2SAT 96
[2023-06-14] MEDS: IV D5W 1,000 ML IV PRN (06:10)
--- NOTE | 2023-06-14 06:39 | NUR ---
TAPE COATER CLOSING NOTE PATIENT IN BED, AWAKE, A/O X4,ON ROOM AIR, NO SOB, DISTESS AND DISCOMFORT NOTED AT THIS TIME. PATIENT ON TELE MONITOR READING SN 68 AT THIS TIME. IV ACCESS LEFT HAND 24G INTACT AND PATENT INFUSING OF D5 W AT 75 CC/HR. ALL DUE MEDS WERE GIVEN. ALL NEEDS WERE ATTENDED. KEPT PT CLEAN AND DRY. SIDE RAILS UP X 2, BED ALARM ON, BED LOCKED IN LOW POSITION , CALL DOLAN/LIGHT WITHIN EASY REACH OF PATIENT. WILL ENDORSE TO MORNING SHIFT NURSE FOR BHARTI.
[2023-06-14 07:08] LABS: BASOPHILS % (AUTO) 0.3 % (0.0-2.0); EOSINOPHILS % (AUTO) 2.3 % (0.0-6.0); HEMATOCRIT 40 % (39-51); HEMOGLOBIN 13.6 g/dL (13.5-17.5); LYMPHOCYTES # (AUTO) 1.6 K/uL (0.8-4.8); LYMPHOCYTES % (AUTO) 19.6 % (20.0-44.0); MEAN CORPUSCULAR HGB CONC 34 g/dl (31.0-36.0); MEAN CORPUSCULAR VOLUME 85 fL (80-96); MONOCYTES # (AUTO) 0.6 K/uL (0.1-1.30); MONOCYTES % (AUTO) 7.2 % (2.0-12.0); NEUTROPHILS # (AUTO) 5.8 K/uL (1.8-8.9); NEUTROPHILS % (AUTO) 70.6 % (43.0-81.0); PLATELET COUNT (AUTO) 187 K/uL (150-450); RED BLOOD CELL COUNT(AUTO) 4.79 MIL/uL (4.5-6.0); WHITE BLOOD COUNT (AUTO) 8.3 K/uL (4.3-11.0)
[2023-06-14 07:13] LABS: CALCIUM, SERUM 8.9 mg/dL (8.5-10.1); CREATININE 0.9 mg/dL (0.6-1.3); MAGNESIUM 2.2 mg/dL (1.8-2.4); PHOSPHORUS 1.7 mg/dL (2.5-4.9)
[2023-06-14 08:00] VITALS: BP 145/68; TEMP 98.3; O2SAT 97
[2023-06-14] MEDS: NITROGLYCERIN 30 GM TUBE TP SCH (08:31)
[2023-06-14] MEDS: CEFEPIME 2 GM in IV D5W 100 ML IV SCH (08:31)
[2023-06-14] MEDS ORDERED: ASPIRIN 81 MG TAB.CHEW PO SCH (09:00)
[2023-06-14] MEDS ORDERED: POTASSIUM CHLORIDE 20 MEQ POWDER PACKET PO ONE (11:00)
[2023-06-14] MEDS: hydrALAZINE HCL IV 20 MG VIAL IV PRN (11:47)
[2023-06-14 12:00] VITALS: BP 161/77; TEMP 98.4; O2SAT 96
--- NOTE | 2023-06-14 14:30 | NUR ---
PATIENT DISCHARGE HOME WITH PRIVATE CAR, DAUGHTER AND WITH PATIENT UPON DISCHARGE. NO NEW MEDICATION, FOLLOW THE HOME MEDICATION INSTRUCTED. NO GIRALDO, NO IV SITE LEFT EVERYTHING REMOVED FROM THE PATIENT. PATIENT STABLE UPON DISCHARGE. VITALS WITHIN NORMAL. ALL DC INSTRUCTIONS GIVEN WRITTEN AND VERBALLY TO THE PATIENT AND DAUGHTER, THEY BOTH VOICED UNDERSTANDING.
[2023-06-14] MEDS ORDERED: NITR100C PO (17:23)
== END 2023-06-14 14:40 | disposition home or self-care (01) | DRG 388 ==
LOC: ER 22:53 → TELE1 06-10 00:38
PROVIDERS: ADMIT Nurse Practitioner Acute Care; ATTEND Student in an Organized Health Care Education/Training Program
DX: K56.609 Unspecified intestinal obstruction, unspecified as to partial versus complete obstruction (principal); A41.9 Sepsis, unspecified organism; E87.20 Acidosis, unspecified; N39.0 Urinary tract infection, site not specified; E87.0 Hyperosmolality and hypernatremia; K55.9 Vascular disorder of intestine, unspecified; I74.5 Embolism and thrombosis of iliac artery; K76.0 Fatty (change of) liver, not elsewhere classified; I25.10 Atherosclerotic heart disease of native coronary artery without angina pectoris; E78.5 Hyperlipidemia, unspecified; E87.6 Hypokalemia; I10 Essential (primary) hypertension; I71.40 Abdominal aortic aneurysm, without rupture, unspecified; K31.9 Disease of stomach and duodenum, unspecified; Z79.82 Long term (current) use of aspirin; Z87.891 Personal history of nicotine dependence; Z88.0 Allergy status to penicillin; Z90.49 Acquired absence of other specified parts of digestive tract; Z95.1 Presence of aortocoronary bypass graft; B95.2 Enterococcus as the cause of diseases classified elsewhere; E05.90 Thyrotoxicosis, unspecified without thyrotoxic crisis or storm; I73.9 Peripheral vascular disease, unspecified
CPT/HCPCS: 36415; 71045-TC; 74018; 74250-TC; 80048-TC; 80053-TC; 80076-TC; 81001; 83605-TC; 83690-TC; 83735-TC; 84100-TC; 84484-TC; 85025-TC; 86225; 86235; 86706; 86803; 87040-TC; 87086-TC; 93307-TC; 94799-TC; A4223; G0378; J0360; J0692; J1650; J1815; J2405; J3370; J3480; J3490; J7030; J7040; J7050; J7060; J7070; Q9963; Q9967

== ENCOUNTER 2025-07-02 11:04 | Inpatient (IN) | payer MEDICARE, OTHER ==
[~2025-07-02] VITALS: Ht 154.9 cm; Wt 86.6 kg
[~2025-07-02 11:04] MED LIST changes: -CLIN30GE2 TP; +ESOM40CA PO; +NITR100C PO
[2025-07-02 11:30] LABS: PLATELET COUNT (AUTO) 298 K/uL (150-450); RED BLOOD CELL COUNT(AUTO) 5.14 MIL/uL (4.5-6.0); RED CELL DISTRIBUTION WIDTH 14.8 % (11.5-15.0); WHITE BLOOD COUNT (AUTO) 21.9 K/uL (4.3-11.0)
[2025-07-02 11:36] LABS: CALCIUM, SERUM 9.8 mg/dL (8.5-10.1); CREATININE 1.2 mg/dL (0.6-1.3); SODIUM SERUM 133 mmol/L (136-145); UREA NITROGEN, BLOOD 8 mg/dL (7-18)
[2025-07-02 11:49] LABS: NT-PRO BNP 870 pg/mL (0-125)
[2025-07-02] MEDS: IV NS 0.9% 1,000 ML BAG IV ONE (11:50)
[2025-07-02] MEDS ORDERED: ACETAMINOPHEN ES 500 MG TABLET ONE (11:56)
[2025-07-02] MEDS: ACETAMINOPHEN ES 500 MG TABLET PO ONE (12:00)
[2025-07-02] MEDS: AZTREONAM 2 G in IV NS 0.9% 100 ML IV ONE (12:00)
[2025-07-02 12:02] LABS: ASPARTATE AMINOTRANSFERASE 24.0 U/L (15-37); TOTAL PROTEIN, SERUM 8.1 g/dL (6.4-8.2)
[2025-07-02 12:09] LABS: INR 1.1 (0.91-1.10)
[2025-07-02] MEDS ORDERED: TAMS-12 PO (12:40)
[2025-07-02] MEDS ORDERED: AMLO-213 PO (12:40)
[2025-07-02] MEDS ORDERED: ICOS1CAP PO (12:40)
[2025-07-02] MEDS ORDERED: ISOS30TA86 PO (12:40)
[2025-07-02] MEDS ORDERED: ROSU40TA PO (12:40)
[2025-07-02] MEDS ORDERED: FERR324T4 PO (12:40)
[2025-07-02] MEDS ORDERED: CARV25TA2 PO (12:40)
[2025-07-02] MEDS ORDERED: DOCU250C76 PO (12:40)
[2025-07-02] MEDS ORDERED: CILO100T PO (12:40)
[2025-07-02] MEDS ORDERED: FENO48TA6 PO (12:40)
[2025-07-02] MEDS: VANCOMYCIN 1 GM in IV D5W 250 ML IV ONE (12:45)
[2025-07-02] MEDS ORDERED: ONDANSETRON HCL/PF 4 MG/2 ML VIAL IVP PRN (13:00)
[2025-07-02] MEDS ORDERED: MAG HYDROX/AL HYDROX/SIMETH 30 ML UDC PO PRN (13:00)
[2025-07-02] MEDS ORDERED: Z GUARD REMEDY 4 OZ OINT TP PRN (13:00)
[2025-07-02] MEDS ORDERED: HYDROCODONE/APAP 5/325MG TABLET PO PRN (13:00)
[2025-07-02] MEDS ORDERED: MAGNESIUM HYDROXIDE 30 ML UDC PO PRN (13:00)
[2025-07-02] MEDS ORDERED: DOSING PER PHARMACY-VANCOMYCIN IV XX PRN (13:00)
[2025-07-02] MEDS ORDERED: VASCEPA 1 GM XX SCH (13:30)
[2025-07-02 14:00] VITALS: BP 124/63; TEMP 209.1; TEMP 98.4; O2SAT 95
[2025-07-02 16:00] VITALS: BP 133/59; TEMP 97.7; O2SAT 97
[2025-07-02] MEDS: CILOSTAZOL 100 MG TABLET PO SCH (17:49)
[2025-07-02] MEDS: CARVEDILOL 12.5 MG TABLET PO SCH (17:49)
[2025-07-02] MEDS: MEROPENEM 500 MG in IV NS 0.9% 50 ML IV SCH (17:50)
[2025-07-02] MEDS: ENOXAPARIN SODIUM 30 MG/0.3 ML DISP.SYRIN SQ SCH (17:51)
[2025-07-02 20:00] VITALS: BP 127/64; TEMP 100.9; O2SAT 94
[2025-07-02] MEDS: ACETAMINOPHEN 325 MG TABLET PO PRN (20:35)
[2025-07-03] VITALS: BP 140/65; TEMP 98.1; O2SAT 95
[2025-07-03 04:00] VITALS: BP 105/52; TEMP 100; O2SAT 94
[2025-07-03 06:51] LABS: APPEARANCE,URINE TURBID (CLEAR); BLOOD, URINE 3+ Ery/uL (NEGATIVE); LEUKOCYTE ESTERASE ,URINE 1+ (NEGATIVE); NITRITE, URINE POSITIVE (NEGATIVE); UGLUCOSE NEGATIVE (NEGATIVE)
[2025-07-03 07:06] LABS: PLATELET COUNT (AUTO) 266 K/uL (150-450); RED BLOOD CELL COUNT(AUTO) 4.69 MIL/uL (4.5-6.0); RED CELL DISTRIBUTION WIDTH 14.8 % (11.5-15.0); WHITE BLOOD COUNT (AUTO) 21.0 K/uL (4.3-11.0)
[2025-07-03 07:08] LABS: ADD URINE CULTURE YES; SQUAMOUS EPITHELIAL CELL,UR Few /HPF (None Seen)
[2025-07-03 07:26] LABS: CALCIUM, SERUM 9.2 mg/dL (8.5-10.1); CREATININE 1.1 mg/dL (0.6-1.3); PHOSPHORUS 2.7 mg/dL (2.5-4.9); SODIUM SERUM 137.0 mmol/L (136-145); UREA NITROGEN, BLOOD 14.0 mg/dL (7-18)
[2025-07-03] MEDS: PANTOPRAZOLE 40 MG TABLET.DR PO SCH (07:33)
[2025-07-03 08:00] VITALS: BP 104/62; TEMP 98.1; O2SAT 96
[2025-07-03] MEDS: FERROUS SULFATE (325 MG) 325 MG/TAB TABLET PO SCH (08:20)
[2025-07-03] MEDS: ATORVASTATIN 40 MG TABLET PO SCH (08:20)
[2025-07-03] MEDS: ASPIRIN EC 81 MG TABLET.DR PO SCH (08:20)
[2025-07-03] MEDS: TAMSULOSIN 0.4 MG CAP.SR.24H PO SCH (08:20)
[2025-07-03] MEDS: DOCUSATE SODIUM 250 MG CAPSULE PO SCH (08:21)
[2025-07-03] MEDS: AMLODIPINE BESYLATE 10 MG TABLET PO SCH (08:22)
[2025-07-03] MEDS: ISOSORBIDE MONONITRATE (30MG) 30 MG TAB.SR.24H PO SCH (08:23)
[2025-07-03 08:34] LABS: LDL 38.0 mg/dL (0-99)
[2025-07-03] MEDS: POTASSIUM CHLORIDE 20 MEQ TAB.PRT.SR PO SCH (09:41)
[2025-07-03 11:30] VITALS: BP 129/67; TEMP 98.8; O2SAT 95
[2025-07-03 11:51] LABS: IRON, SERUM 16.0 ug/dl (50-175)
[2025-07-03] MEDS: VANCOMYCIN HCL 1.25 GM in IV D5W 250 ML IV SCH (12:51)
[2025-07-03 16:00] VITALS: BP 94/63; TEMP 98.8; O2SAT 94
[2025-07-03 20:00] VITALS: BP 132/69; TEMP 99; O2SAT 95
[2025-07-03] MEDS ORDERED: LEVALBUTEROL HCL NEB 1.25 MG/0.5 ML VIAL.NEB NEB PRN (20:00)
[2025-07-04] VITALS: BP 140/65; TEMP 98.8; O2SAT 95
[2025-07-04] MEDS ORDERED: FURO20TA4 PO (07:02)
[2025-07-04 07:13] LABS: PLATELET COUNT (AUTO) 258 K/uL (150-450); RED BLOOD CELL COUNT(AUTO) 4.37 MIL/uL (4.5-6.0); RED CELL DISTRIBUTION WIDTH 14.8 % (11.5-15.0); WHITE BLOOD COUNT (AUTO) 14.9 K/uL (4.3-11.0)
[2025-07-04 08:00] VITALS: BP 140/75; TEMP 98.2; O2SAT 96
[2025-07-04 08:11] LABS: CALCIUM, SERUM 9.1 mg/dL (8.5-10.1); CREATININE 0.9 mg/dL (0.6-1.3); SODIUM SERUM 140.0 mmol/L (136-145); UREA NITROGEN, BLOOD 16.0 mg/dL (7-18)
[2025-07-04 12:00] VITALS: BP 149/78; TEMP 98.4; O2SAT 98
[2025-07-04 16:00] VITALS: BP 115/92; TEMP 97.9; O2SAT 99
[2025-07-04 20:00] VITALS: BP 115/76; TEMP 98.6; O2SAT 95
[2025-07-04] MEDS: LEVALBUTEROL HCL NEB 1.25 MG/0.5 ML VIAL.NEB NEB PRN (23:52)
[2025-07-04 23:57] VITALS: O2SAT 92
[2025-07-05 00:08] VITALS: O2SAT 94
[2025-07-05 07:17] LABS: PLATELET COUNT (AUTO) 266 K/uL (150-450); RED BLOOD CELL COUNT(AUTO) 4.32 MIL/uL (4.5-6.0); RED CELL DISTRIBUTION WIDTH 14.4 % (11.5-15.0); WHITE BLOOD COUNT (AUTO) 7.9 K/uL (4.3-11.0)
[2025-07-05 07:44] LABS: CALCIUM, SERUM 8.7 mg/dL (8.5-10.1); CREATININE 0.9 mg/dL (0.6-1.3); SODIUM SERUM 139.0 mmol/L (136-145); UREA NITROGEN, BLOOD 14.0 mg/dL (7-18)
[2025-07-05 08:00] VITALS: BP 142/69; TEMP 98.4; O2SAT 95
[2025-07-05] MEDS ORDERED: DEXTROSE 50%-WATER 50 ML DISP.SYRIN IV PRN (10:00)
[2025-07-05] MEDS: BLOOD SUGAR DIAGNOSTIC 1 EACH STRIP IN SCH (12:13)
[2025-07-05] MEDS: INSULIN REGULAR, HUMAN 100 UNIT/ML 3 ML VIAL SQ PRN (12:16)
[2025-07-05 16:00] VITALS: BP 134/63; TEMP 98.6; O2SAT 95
[2025-07-05 20:45] VITALS: BP 133/68; TEMP 98.1; O2SAT 92
[2025-07-05 20:58] VITALS: BP 133/68; TEMP 98.1
[2025-07-06 06:35] LABS: CALCIUM, SERUM 9.3 mg/dL (8.5-10.1); CREATININE 0.9 mg/dL (0.6-1.3); SODIUM SERUM 141.0 mmol/L (136-145); UREA NITROGEN, BLOOD 10.0 mg/dL (7-18)
[2025-07-06 06:36] LABS: PLATELET COUNT (AUTO) 304 K/uL (150-450); RED BLOOD CELL COUNT(AUTO) 4.50 MIL/uL (4.5-6.0); RED CELL DISTRIBUTION WIDTH 14.9 % (11.5-15.0); WHITE BLOOD COUNT (AUTO) 7.6 K/uL (4.3-11.0)
[2025-07-06 08:00] VITALS: BP 136/71; TEMP 98.6; O2SAT 95
[2025-07-06 09:09] VITALS: BP 136/71
[2025-07-07 12:07] LABS: *WEST NILE VIRUS, IgG, SERUM Negative (Negative); *WEST NILE VIRUS, IgM, SERUM Negative (Negative)
== END 2025-07-06 15:44 | disposition home health service (06) | DRG 871 ==
LOC: ER 11:12 → TELE 12:50 → MED 07-04 09:44
PROVIDERS: ADMIT Nurse Practitioner Acute Care; ATTEND Nurse Practitioner Acute Care
DX: A41.9 Sepsis, unspecified organism (principal); G92.9 Unspecified toxic encephalopathy; J15.9 Unspecified bacterial pneumonia; E87.1 Hypo-osmolality and hyponatremia; N39.0 Urinary tract infection, site not specified; E78.5 Hyperlipidemia, unspecified; E05.90 Thyrotoxicosis, unspecified without thyrotoxic crisis or storm; I25.10 Atherosclerotic heart disease of native coronary artery without angina pectoris; N40.0 Benign prostatic hyperplasia without lower urinary tract symptoms; Z20.822 Contact with and (suspected) exposure to COVID-19; Z95.1 Presence of aortocoronary bypass graft; Z88.0 Allergy status to penicillin; Z79.82 Long term (current) use of aspirin; Z79.899 Other long term (current) drug therapy; Z68.36 Body mass index [BMI] 36.0-36.9, adult; E66.9 Obesity, unspecified; R53.1 Weakness; D64.9 Anemia, unspecified; E03.9 Hypothyroidism, unspecified; E05.20 Thyrotoxicosis with toxic multinodular goiter without thyrotoxic crisis or storm; I50.9 Heart failure, unspecified; I11.0 Hypertensive heart disease with heart failure; K80.20 Calculus of gallbladder without cholecystitis without obstruction; B96.89 Other specified bacterial agents as the cause of diseases classified elsewhere; R73.03 Prediabetes; Z79.02 Long term (current) use of antithrombotics/antiplatelets
CPT/HCPCS: 36415; 70450-TC; 71045-TC; 71250-TC; 80048-TC; 80061-TC; 80076-TC; 81001; 82728-TC; 82962-TC; 83540-TC; 83735-TC; 83880; 84100-TC; 84439-TC; 84443-TC; 84484-TC; 85025-TC; 85730-TC; 86788; 86789; 87040-TC; 87081-TC; 87086-TC; 93307-TC; 94761-TC; 97110-TC; 97116-TC; 97530-TC; 97535-TC; A4223; G0378; J1650; J1815; J2185; J3373; J3490; J7030; J7060